=== PATIENT | male | born 1975 | race Caucasian/White ===

== ENCOUNTER 2018-03-08 19:05 | Inpatient (IN) | payer OTHER ==
[~2018-03-08] VITALS: Ht 175.3 cm; Wt 73.0 kg
[2018-03-08 19:09] VITALS: BP 130/77
[2018-03-08] MEDS ORDERED: NOHOMEMEDICATIONS (19:21)
[2018-03-08 19:29] LABS: HEMATOCRIT 30.7 % (42.0-52.0); HEMOGLOBIN 10.5 gm/dL (14.0-18.0); MCH 31.3 pg (26.0-34.0); MCHC 34.3 g/dL (28.0-37.0); MCV 91.3 fL (80.0-100.0); MPV 7.3 fl. (7.2-11.1); NUCLEATED RBCS 0 /100WBC; PLATELET COUNT* 139 thou/uL (150-400); RBC 3.37 mil/uL (4.50-6.00); RDW-CV 15.5 % (10.5-14.5); WBC 4.7 thou/uL (4.0-11.0)
[2018-03-08 19:37] LABS: ANION GAP 6 mmol/L (7-16); BUN 31 mg/dL (7-18); CALCIUM 8.6 mg/dL (8.5-10.1); CHLORIDE 91 mmol/L (98-107); CO2 33 mmol/L (21-32); GLUCOSE 149 mg/dL (70-99); SODIUM 130 mmol/L (136-145)
[2018-03-08 19:38] LABS: POTASSIUM 2.4 mmol/L (3.5-5.1)
[2018-03-08 19:41] LABS: APTT 23.8 Seconds (25.0-31.3)
[2018-03-08 19:48] LABS: ABSOLUTE LYMPHOCYTES 1.3 thou/uL (0.8-5.3); ABSOLUTE MONOCYTES 0.3 thou/uL (0.0-1.2); ABSOLUTE NEUTROPHILS 3.1 thou/uL (1.6-8.1); ATYPICAL LYMPHS 12 %
[2018-03-08 19:57] LABS: ALBUMIN 3.1 g/dL (3.4-5.0); ALKALINE PHOSPHATASE 63 U/L (46-116); CK-MB MASS 5.9 ng/mL (<0.5-3.6); LIPASE 280 U/L (73-393); MAGNESIUM 1.9 mg/dL (1.8-2.4); NT-PRO BRAIN NAT PEPTIDE 38 pg/mL (<300); SGOT 86 U/L (15-37); SGPT 66 U/L (30-65); TOTAL BILIRUBIN 0.7 mg/dL (<0.1-1.0); TOTAL PROTEIN 6.5 g/dL (6.4-8.2); TROPONIN-I LEVEL <0.06 ng/mL (<0.06)
[2018-03-08 22:33] LABS: ANION GAP 7 mmol/L (7-16); BUN 27 mg/dL (7-18); CALCIUM 8.2 mg/dL (8.5-10.1); CHLORIDE 95 mmol/L (98-107); CO2 29 mmol/L (21-32); CREATININE 0.9 mg/dL (0.6-1.3); GLUCOSE 83 mg/dL (70-99); SODIUM 131 mmol/L (136-145)
[2018-03-08 22:41] LABS: TROPONIN-I LEVEL <0.06 ng/mL (<0.06)
[2018-03-08 22:45] LABS: POTASSIUM 2.7 mmol/L (3.5-5.1)
[2018-03-08 23:29] VITALS: BP 135/93
[2018-03-08 23:49] VITALS: BP 137/96
[2018-03-09 04:00] VITALS: BP 137/82
[2018-03-09] MEDS ORDERED: BUSPIRONE HCL10 MG PO (04:25)
[2018-03-09] MEDS ORDERED: PRILOSEC 20 MG20 MG PO (04:25)
[2018-03-09] MEDS ORDERED: PROZAC20 MG PO (04:26)
[2018-03-09] MEDS ORDERED: LISINOPRIL10 MG PO (04:28)
[2018-03-09] MEDS ORDERED: LOPRESSOR50 PO (04:29)
[2018-03-09] MEDS ORDERED: PERCOCET 7.5-31 EACH PO (04:30)
[2018-03-09] MEDS ORDERED: ZYRTEC10 M5 PO (04:30)
[2018-03-09 06:28] LABS: CALCIUM 7.8 mg/dL (8.5-10.1); CREATININE 0.7 mg/dL (0.6-1.3); POTASSIUM 3.6 mmol/L (3.5-5.1)
[2018-03-09 07:27] LABS: ALBUMIN 2.6 g/dL (3.4-5.0); CREATININE 0.7 mg/dL (0.6-1.3); POTASSIUM 3.5 mmol/L (3.5-5.1)
--- NOTE | 2018-03-09 08:02 | NUR ---
RECEIVED REPORT FROM LAUREN SORIANO AT 2320. PT ARRIVED TO UNIT AT 2340. PT ORIENTED TO SELF AND PLACE ONLY. TRACING SINUS RHYTHM ON HOSIERY PAIRER. C/O PAIN, AND STATES HE DRINKS 1/2 PINT DAILY. CIWA SCORE 9, VOICES ANXIETY, VISIBLE TREMORS, AND SWEATING. DR. ESCOBAR NOTIFIED, NEW ORDERS RECEIVED. PT ATE BOX LUNCH UPON ARRIVAL TO UNIT, RESTED THOUGHOUT SHIFT. VOICED NO OTHER CONCERNS. HOURLY ROUNDING COMPLETED. CALL LIGHT WITHIN REACH. NO FALLS THIS SHIFT.
[2018-03-09 09:00] VITALS: BP 134/80
[2018-03-09 12:02] VITALS: BP 98/61
--- NOTE | 2018-03-09 13:06 | NUR ---
ATTEMPTED TO MEET WITH PT X2. HAS HAD MEDS AND IS SLEEPING. WILL TRY LATER
--- NOTE | 2018-03-09 16:13 | 2DMMODE ---
[place] [address] 2 D/M-MODE ECHOCARDIOGRAM Name: JEROME GUZMAN Room: [address] IN [facility]#: [id number] Admission: 03/08/18 Attend Phys: Brian Pineda, Discharge: Date of : 75 Date of Service: 03/09/18 1613 Report #: [id number] THIS REPORT FOR: //name// APPROVED REPORT Study performed: 03/09/2018 11:09:17 EXAM: Comprehensive 2D, Doppler, and color-flow Echocardiogram Patient Location: In-Patient Room #: [facility] Status: routine BSA: 1.79 HR: 65 bpm BP: 137/82 mmHg Rhythm: NSR Other Information Study Quality: Good Indications Chest Pain Hypertension/HDD Hypokalemia 2D Dimensions LVEF(%): 55.65 (>50%) IVSd: 9.45 (7-11mm) LVOT Diam: 21.74 (18-24mm) LVDd: 49.40 mm PWd: 9.30 (7-11mm) Ascending Ao: 31.10 (22-36mm) LVDs: 35.03 (25-40mm) Aortic Root: 35.66 mm See's LVEF: 55.65 % Volumes Left Atrial Volume (Systole) LA ESV Index: 28.00 mL/m2 Aortic Valve AoV Peak Guy.: 1.29 m/s AO Peak Gr.: 6.63 mmHg LVOT Max P.19 mmHg AO Mean Gr.: 3.68 mmHg LVOT Mean P.29 mmHg LVOT Max V: 1.14 m/s AO V2 VTI: 21.37 cm LVOT Mean V: 0.68 m/s RASHI (VTI): 3.31 cm2 LVOT V1 VTI: 19.03 [place] [address] 2 D/M-MODE ECHOCARDIOGRAM Name: JEROME GUZMAN Room: [address] IN [facility]#: [id number] Admission: 03/08/18 Attend Phys: Brian Pineda, Discharge: Date of : 75 Date of Service: 03/09/18 1613 Report #: [id number] Mitral Valve E/A Ratio: 1.23 MV Decel. Time: 159.54 ms MV E Max Guy.: 0.58 m/s MV PHT: 46.27 ms MVA (PHT): 4.76 cm2 TDI E/Lateral E': 4.46 E/Medial E': 4.46 Medial E' Guy.: 0.13 m/s Lateral E' Guy.: 0.13 m/s Pulmonary Valve PV Peak Guy.: 0.85 m/s PV Peak Gr.: 2.89 mmHg Left Ventricle The left ventricle is normal size. There is normal LV segmental wall motion. There is normal left ventricular wall thickness. Left ventricular systolic function is normal. LVEF is 60-65%. The left ventricular diastolic function is normal. Right Ventricle The right ventricle is normal size. The right ventricular systolic function is normal. Atria The left atrium size is normal. The right atrium size is normal. Aortic Valve The aortic valve is normal in structure. Trace aortic regurgitation. There is no aortic valvular stenosis. Mitral Valve The mitral valve is normal in structure. There is no mitral valve regurgitation noted. No evidence of mitral valve stenosis. Tricuspid Valve The tricuspid valve is normal in structure. Trace tricuspid regurgitation. Pulmonic Valve The pulmonary valve is normal in structure. There is no pulmonic valvular [place] [address] 2 D/M-MODE ECHOCARDIOGRAM Name: JEROME GUZMAN Yana Room: [address] IN [facility]#: [id number] Admission: 03/08/18 Attend Phys: Brian Pineda, Discharge: Date of : 75 Date of Service: 03/09/18 1613 Report #: [id number] The aortic root is normal in size. IVC is dilated. Pericardium There is no pericardial effusion. <Conclusion> The left ventricle is normal size. There is normal left ventricular wall thickness. Left ventricular systolic function is normal. LVEF is 60-65%. The left ventricular diastolic function is normal. Trace aortic regurgitation. Trace tricuspid regurgitation. <ELECTRONICALLY SIGNED> By: Kelby Bhatt MD, FACC 03/09/18 1613 1613 161 Kelby Bhatt MD, FACC /INF
[2018-03-09 16:15] VITALS: BP 110/77
--- NOTE | 2018-03-09 17:18 | EKG ---
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
--- NOTE | 2018-03-09 17:19 | EKG ---
[place] [address] ELECTROCARDIOGRAM REPORT Name: JEROME GUZMAN Room: [place] [address] ADM IN M.R.#: [id number] Admission: 03/08/18 Attend Phys: Brian Pineda MD Discharge: Date of : 75 Report #: [id number] THIS REPORT FOR: //name// [facility] Test Date: 2018-03-09 Test Time: 02:08:24 Pat Name: JEROME GUZMAN Department: Room: [place] [address] Gender: M Medical Policy Specialist: : 1975 Requested By: César Jacobson Order Number: [id number] Juan Ramon MD: Kelby Bhatt Measurements Intervals [place] Rate: 94 P: 74 NV: 141 QRS: 80 QRSD: 95 T: 24 QT: 426 QTc: 533 Interpretive Statements Sinus rhythm Prolonged QT interval No previous ECG available for comparison Electronically Signed On 03-09-2018 17:19:21 CDT by Kelby Bhatt [email or web address] <ELECTRONICALLY SIGNED> By: Kelby Bhatt MD, [facility] 03/09/18 1719 0208 0208 Kelby Bhatt MD, FACC /EPI
--- NOTE | 2018-03-09 17:19 | EKG ---
[place] [address] ELECTROCARDIOGRAM REPORT Name: JEROME GUZMAN Room: [place] [address] ADM IN M.R.#: [id number] Admission: 03/08/18 Attend Phys: Brian Pineda MD Discharge: Date of : 75 Report #: [id number] THIS REPORT FOR: //name// [facility] Test Date: 2018-03-09 Test Time: 06:05:53 Pat Name: JEROME GUZMAN Department: Room: [place] [address] Gender: M Psychologists: : 1975 Requested By: César Jacobson Order Number: [id number] Juan Ramon MD: Kelby Bhatt Measurements Intervals [place] Rate: 81 P: -4 ID: 146 QRS: -11 QRSD: 93 T: 24 QT: 443 QTc: 515 Interpretive Statements Sinus rhythm Prolonged QT interval No previous ECG available for comparison Electronically Signed On 03-09-2018 17:19:29 CDT by Kelby Bhatt [email or web address] <ELECTRONICALLY SIGNED> By: Kelby Bhatt MD, [facility] 03/09/18 1719 0605 4 Kelby Bhatt MD, FACC /EPI
[2018-03-09 20:00] VITALS: BP 99/64
[2018-03-10] VITALS: BP 109/75
[2018-03-10 04:00] VITALS: BP 107/77
[2018-03-10 04:45] LABS: HEMATOCRIT 29.9 % (42.0-52.0); HEMOGLOBIN 9.8 gm/dL (14.0-18.0); MCH 30.8 pg (26.0-34.0); MCHC 32.9 g/dL (28.0-37.0); MCV 93.7 fL (80.0-100.0); MPV 8.1 fl. (7.2-11.1); RBC 3.19 mil/uL (4.50-6.00); RDW-CV 15.7 % (10.5-14.5); WBC 4.2 thou/uL (4.0-11.0)
[2018-03-10 05:00] LABS: AMP/METHAMP Negative (Negative); BARBITURATES Negative (Negative); BENZODIAZEPINES Negative (Negative); COCAINE Negative (Negative); METHADONE Negative (Negative); OPIATES POSITIVE (Negative); PCP Negative (Negative); THC Negative (Negative)
[2018-03-10 05:05] LABS: ALBUMIN 2.2 g/dL (3.4-5.0); CALCIUM 7.9 mg/dL (8.5-10.1); MAGNESIUM 1.8 mg/dL (1.8-2.4); POTASSIUM 4.1 mmol/L (3.5-5.1); TOTAL BILIRUBIN 0.3 mg/dL (<0.1-1.0); TOTAL PROTEIN 5.2 g/dL (6.4-8.2)
--- NOTE | 2018-03-10 05:56 | NUR ---
ASSUMED PT CARE AT 1930. NURSING ASSESSMENT COMPLETED AT START OF SHIFT. PT VOICED NO CONCERS THIS SHIFT. MRB ENGINEER IN PLACE, TRACING SINUS RHYTHM. PT DROWSY BUT EASILY AROUSABLE THIS SHIFT, CIWA SCORE LESS THAN 4 THIS SHIFT, IVF INFUSING. C/O BACK PAIN, PRN PAIN MEDICATION ADMINISTERED, SEE EMAR FOR DOCUMENTATION. CALL LIGHT WITHIN REACH. FALL PRECAUTIONS IN PLACE.
[2018-03-10 08:00] VITALS: BP 106/82
--- NOTE | 2018-03-10 12:00 | NUR ---
VSS, ASSUMED CARE IN THE AM, ASSESMENT PERFORMED AND CHARTED, FALL PRECAUTIONS IN PLACE AND CALL LIGHT IN REACH, PT IS A&O4 UP WITH STAND BY, STATES LEILANI IN HIS BACK AND IS OLEGARIO NICHOLS ON THE MONITOR, PT IS ON RA AND HIS GOAL IS TO LOWER PAIN LEVEL. WILL FOLLOW ITH PLAN OF CARE.
--- NOTE | 2018-03-10 16:24 | NUR ---
VSS, PT IS NOT PROGRESSING TOWARDS GOAL, PT IS STATING PAIN LHAVING A LOT OF PAIN IN BACK, HE IS STILL SR ON THE MONITOR, AND BP'S HAVE BEEN WDP ALL DAY, PT IS ON RA UP WITH STAND BY AND IS A&O4, HOURLY ROUNDS COMPLETED AND WILL FOLLOW WITH PLAN OF CARE.
[2018-03-10 16:30] VITALS: BP 119/82
[2018-03-10 19:45] VITALS: BP 132/96
--- NOTE | 2018-03-10 23:00 | NUR ---
PT COULD NOT BE FOUND IN ROOM AT THIS TIME. IV WAS PULLED OUT AND LAYING ON FLOOR, CAN SOLDERER HAD BEEN PULLED OFF AND LAYING ON FLOOR. SEARCHED TELE FLOOR, OPEN ROOMS, BATHROOMS, VENDING MACHINE AND STAIRWELL AND PATIENT WAS NOT FOUND. SECURITY CALLED. PT WAS FOUND WANDERING DOWN IN ER AND HAD FOLLOWED A GROUP OF LADIES OUT TO THEIR CAR BUT WAS UNSUCCESSFUL IN OBTAINING A RIDE AND ATTEMPTED TO WALK OFF CAMPUS, HOWEVER, SECURITY FOUND PATIENT IN PARKING LOT AND ESCORTED HIM BACK UP TO HIS ROOM. PT HAS CURRENTLY BEEN MOVED TO A CLOSER ROOM WITH BED ALARM IN PLACE AND LABELED A FLIGHT RISK. WILL CONT TO MONITOR.
[2018-03-11] VITALS: BP 137/103
[2018-03-11 04:00] VITALS: BP 142/101
--- NOTE | 2018-03-11 05:57 | NUR ---
END SHIFT: PT CONTINUES TO HAVE SOME AUDITORY HALLUCINATIONS, AND YELLS OUT. CIWA INCREASING OVER SHIFT TO 10 THIS MORNING. IV ATIVAN GIVEN PER PROTOCOL. REMAINS SR ON MONITOR. C/O PAIN THAT IS NOT RELIEVED "BY ANY MEDICATION WE ARE GIVING HIM." ATTEMPTS AT RE-ORIENTATION ARE SUCCESSFUL FOR SHORT PERIODS. BED ALARM ON- OTHER SAFETY PRECAUTIONS IN PLACE. CALL LIGHT IN REACH. PERFORMED HOURLY ROUNDING. WILL CONT TO MONITOR.
[2018-03-11 07:30] VITALS: BP 160/121
--- NOTE | 2018-03-11 11:41 | NUR ---
RECEIVED PT CARE 0700. HE IS AWAKE/ALERT, ORIENTED X2-3. FORGETFUL AND CONFUSED AT TIMES, EASILY REORIENTED. VSS. FISHERIES SPECIALIST TRACING SR. TELE MONITOR DC'D THIS AM PER DR BLANK. CIWA 9 THIS AM. PRN ATIVAN GIVEN WITH GOOD RELIEF. PATIENT REPOSITIONS SELF IN BED. IVF INFUSING. AM ASSESSMENT CHARTED. MEDS PER OCT. C/O LEFT SIDE/CHEST PAIN, PRN PAIN MEDICATION GIVEN WITH PARTIAL RELIEF. PAIN MEDICATIONS ADJUSTED PER DR BLANK. BED ALARM ON. CALL LIGHT WITHIN REACH. WILL CONTINUE TO MONITOR.
[2018-03-11 12:11] VITALS: BP 113/83
[2018-03-11 15:54] VITALS: BP 125/91
--- NOTE | 2018-03-11 16:07 | NUR ---
Pt was sound asleep when CM went to assess, will f/u later
[2018-03-11 20:31] VITALS: BP 118/89
--- NOTE | 2018-03-11 22:00 | NUR ---
PT ALERT ORIENTED. SCORES A 6 ON CIWA. ATIVAN GIVEN. VOIDS CLEAR YELLOW. TELEMETRY SHOWS SR. WILL CONTINUE TO MONITOR.
[2018-03-12] VITALS (7 sets, daily range): BP systolic 120–146; BP diastolic 77–107
--- NOTE | 2018-03-12 04:49 | NUR ---
PT HAVING EPISOIDS OF CONFUSION UPON AWAKENING. REORIENTS EASILY. TRAMADOL SCHEDULED AND OXICODONE GIVEN FOR PAIN IN CHEST R/T PNEUMONIA. ATIVAN FOR WITHDRAW.
--- NOTE | 2018-03-12 08:49 | NUR ---
VSS, ASSUMED CARE IN THE AM, ASSESSMENT PERFORMED AND CHARTED, FALL PRECAUTIONS IN PLACE AND CALL LIGHT IN REACH, PT IS A&O4 BUT FORGETFUL, ON 2L NC UP AD DANE, STATES PAIN IN HIS LEFT SIDE, STATES IT 7 OUT OF 10, OT GOAL IS TO IMPROVE BREATHING AND LOWER PAIN LEVEL, PT IS TRACING SR ON THE MONITOR,
--- NOTE | 2018-03-12 11:51 | NUR ---
MET WITH PT TO DISCUSS HOME SITUATION/DC PLANNING. 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 PT IS STAYING IN AN EXTENDED STAY MOTEL, HE THINKS OFF [address] HE PLANS TO RETURN TO WORK AFTER DC. HE IS AND HAS SUPPORTIVE MOM AND FAMILY. DISCUSSED ETOH USE, PT OPEN ABOUT HIS HX. HAS BEEN TO REHAB, MOST RECENTLY 6MONTHS AGO IN [place]. STATED DID A DETOX AND TRIED TO F/U, BUT WAS 'TOO MUCH' TIME FACTOR. PT AWARE HE HAS BEEN DETOXING HERE NOW. HE HAS BEEN TO AA, STATED IT DIDN'T WORK FOR HIM. HE IS INTERESTED IN A CELEBRATE RECOVERY PROGRAM, WILL GIVE PT RESOURCES. HE IS UNINSURED, GAVE COMMUNITY RESOURCES. WILL FOLLOW
--- NOTE | 2018-03-12 19:14 | NUR ---
VSS, PT IS PROGRESSING TOWARDS GOAL, PT IS ON RA AND IS TRACING SR ON THE MONITOR, PT STATES PAIN ON HIS LEFT SIDE CHEST, HE IS UP WITH STAND BY AND IS BREATHING BETTER, AND ON RA, HE IS UP WITH STAND BY, PT IS IN BED RESTING AT THIS TIME AND HOURLY ROUNDS COMPLETED.
[2018-03-13] VITALS: BP 126/82
[2018-03-13 04:00] VITALS: BP 140/90
--- NOTE | 2018-03-13 05:44 | NUR ---
PATIENT RESTED IN BED, NO ACUTE CHANGES. PATIENT DID NOT SHOW SIGNS OF DISTRESS. NO ACUTE CHANGES, FALL PRECAUTIONS IN PLACE, BED ALARM ON, HOURLY ROUNDING OBSERVED.
[2018-03-13 08:00] VITALS: BP 151/107
[2018-03-13] MEDS ORDERED: ATIVAN1 MG PO (12:20)
[2018-03-13 12:31] VITALS: BP 151/107
--- NOTE | 2018-03-13 13:25 | NUR ---
VSS, ASSUMED CARE IN THE AM, ASSESSMENT PERFFORMED AND CHARTED, FALL PRECAUTIONS IN PLACE AND CALL LIGHT IN REACH, PT STATES PAIN ON HIS LEFT SIDE AND AND IS ON RA AND IS TRACING SR ON THE MONITOR, HE IS UP AD DANE AND HIS GOAL IS TO D/C ON DAY OF CARE, AT THIS D/C ORDERS HAVE BEEN RECIEVED AND PT IS IV AND TELE MONITOR HAVE BEEN TAKEN OFF, PT DENIES ANY QUESTIONS OR CONCERNS AT TIME OF D/C, HOURLY ROUNDS COMPLETED, SCRIPTS AND D/C PAPERS WERE GIVEN TO PT AND PT WAS WALKED OUT BY STAFF TO CAB,
--- NOTE | 2018-03-13 13:45 | NUR ---
PROVIDED CAB VOUCHER FOR PT
== END 2018-03-13 13:37 | disposition home or self-care (01) | DRG 195 ==
LOC: M.ERS 19:05 → EDBD 19:05 → M.TBA-ER 23:14 → M.2W 23:14
PROVIDERS: Family Medicine; Internal Medicine; ADMIT Internal Medicine
DX: J18.9 Pneumonia, unspecified organism (principal); E87.6 Hypokalemia; F10.10 Alcohol abuse, uncomplicated; F17.210 Nicotine dependence, cigarettes, uncomplicated; D64.9 Anemia, unspecified; R79.89 Other specified abnormal findings of blood chemistry; I25.2 Old myocardial infarction; Z87.820 Personal history of traumatic brain injury; Z79.2 Long term (current) use of antibiotics; Z79.899 Other long term (current) drug therapy

== ENCOUNTER 2018-03-15 15:09 | Inpatient (IN) | payer OTHER ==
[~2018-03-15] VITALS: Ht 175.3 cm; Wt 73.0 kg
[~2018-03-15 15:09] MED LIST: ATIVAN1 MG PO; BUSPIRONE HCL10 MG PO; LISINOPRIL10 MG PO; LOPRESSOR50 PO; NOHOMEMEDICATIONS; PERCOCET 7.5-31 EACH PO; PRILOSEC 20 MG20 MG PO; PROZAC20 MG PO; ZYRTEC10 M5 PO
[2018-03-15 15:11] VITALS: BP 113/83
--- NOTE | 2018-03-15 15:29 | NUR ---
CONTACTED AN UNCLE PER PT REQUEST BY THE NAME GUILLERMINA. GUILLERMINA STATES PT IS HOMELESS AND THAT HIS MOTHER IS IN POOR HEALTH.
[2018-03-15 15:45] LABS: ABSOLUTE BASOPHILS 0.1 thou/uL (0.0-0.2); ABSOLUTE LYMPHOCYTES 1.4 thou/uL (0.8-5.3); ABSOLUTE MONOCYTES 0.9 thou/uL (0.0-1.2); ABSOLUTE NEUTROPHILS 4.7 thou/uL (1.6-8.1); BASOPHILS 1.4 %; EOSINOPHILS 0.2 %; HEMATOCRIT 38.6 % (42.0-52.0); HEMOGLOBIN 12.7 gm/dL (14.0-18.0); LYMPHOCYTES 19.6 %; MCH 30.3 pg (26.0-34.0); MCHC 33.1 g/dL (28.0-37.0); MCV 91.7 fL (80.0-100.0); MONOCYTES 12.3 %; MPV 6.5 fl. (7.2-11.1); NUCLEATED RBCS 0 /100WBC; PLATELET COUNT* 838 thou/uL (150-400); POLYS 66.5 %; WBC 7.1 thou/uL (4.0-11.0)
[2018-03-15 15:51] LABS: CALCIUM 8.1 mg/dL (8.5-10.1); CREATININE 1.1 mg/dL (0.6-1.3); POTASSIUM 3.7 mmol/L (3.5-5.1)
[2018-03-15 15:52] LABS: URINE BILIRUBIN NEGATIVE (Negative); URINE BLOOD NEGATIVE (Negative); URINE CLARITY CLEAR; URINE COLOR YELLOW; URINE GLUCOSE-RANDOM NEGATIVE (Negative); URINE KETONES TRACE (Negative); URINE LEUKOCYTES-REFLEX NEGATIVE (Negative); URINE NITRITE-REFLEX NEGATIVE (Negative); URINE PROTEIN NEGATIVE (Negative); URINE UROBILINOGEN 0.2 E.U./dl (0.2-1.0)
[2018-03-15 15:59] LABS: ALBUMIN 2.6 g/dL (3.4-5.0); TOTAL BILIRUBIN 0.2 mg/dL (<0.1-1.0); TOTAL PROTEIN 6.4 g/dL (6.4-8.2); TROPONIN-I LEVEL 0.06 ng/mL (<0.06)
--- NOTE | 2018-03-15 16:03 | NUR ---
PT TORE ALL MONITORING DEVICES OFF AND REFUSED TO LEAVE THEM ON.
[2018-03-15 16:05] LABS: AMP/METHAMP Negative (Negative); BARBITURATES Negative (Negative); BENZODIAZEPINES Negative (Negative); COCAINE Negative (Negative); METHADONE Negative (Negative); OPIATES Negative (Negative); PCP Negative (Negative); THC Negative (Negative)
--- NOTE | 2018-03-15 16:10 | NUR ---
PT RIPPED 2ND IV OUT. NOTIFIED AND NO NEW ORDERS GIVEN.
--- NOTE | 2018-03-15 16:58 | NUR ---
PT RIPPED ALL MONITORING EQUIPMENT AGAIN. NOTIFIED
--- NOTE | 2018-03-15 17:02 | NUR ---
3RD ARMBAND PLACED ON PT. PT RIPPED PREVIUOS 2 OFF.
[2018-03-15 17:16] VITALS: BP 118/69
[2018-03-15 18:00] VITALS: BP 102/69
--- NOTE | 2018-03-15 18:26 | NUR ---
PT ARRIVED TO UNIT 1725. VSS. ROOM AIR. PT REPORTS PAIN IN HIS BACK THAT HE HAS "HAD FOR YEARS". ORIENTED AND COOPERATIVE AT THIS TIME. DENIES ANY FURTHER CONCERNS/QUESTIONS.
[2018-03-15] MEDS ORDERED: OXYCODONE HCL 55 MG PO (19:08)
[2018-03-15 20:00] VITALS: BP 106/63
[2018-03-16] VITALS: BP 106/63
--- NOTE | 2018-03-16 01:44 | NUR ---
PT ALERT ORIENTED. PT COMPLAINING OF BACK PAIN ASKING FOR HYDROCODONE THAT HE HAD LAST TIME HE WAS HERE. DR BLANK NOTIFIED. LIDOCAIN PATCH ADDED TO MEDICATIONS THAT PATIENT ALREADY GETTING. IBUPROPHEN AND TRAMADOL. ALSO REQUESTED A NICOTINE PATCH FOR PT. TELEMETRY SHOWS ST. UP WITH STAND BY ASSIST. WILL CONTINUE TO MONITOR.
--- NOTE | 2018-03-16 03:20 | NUR ---
PT AGITATED AND FIGITY. CIWA RESCORED AT 0230 AT 0230. ATIVAN GIVEN.
[2018-03-16 04:00] VITALS: BP 128/89
[2018-03-16 05:16] LABS: HEMATOCRIT 32.9 % (42.0-52.0); HEMOGLOBIN 10.9 gm/dL (14.0-18.0); MCH 30.5 pg (26.0-34.0); MCHC 33.3 g/dL (28.0-37.0); MCV 91.8 fL (80.0-100.0); RBC 3.58 mil/uL (4.50-6.00); RDW-CV 15.6 % (10.5-14.5); WBC 7.6 thou/uL (4.0-11.0)
[2018-03-16 05:37] LABS: ALBUMIN 2.2 g/dL (3.4-5.0); CALCIUM 7.6 mg/dL (8.5-10.1); MAGNESIUM 1.5 mg/dL (1.8-2.4); POTASSIUM 4.6 mmol/L (3.5-5.1); TOTAL BILIRUBIN 0.1 mg/dL (<0.1-1.0); TOTAL PROTEIN 5.3 g/dL (6.4-8.2); TROPONIN-I LEVEL 0.15 ng/mL (<0.06)
[2018-03-16 08:00] VITALS: BP 144/102
--- NOTE | 2018-03-16 11:56 | NUR ---
INITIAL ASSESSMENT: Pt evaluated for d/c planning needs. Reviewed chart. Pt was hospitalized at [facility] earlier this month and went through detox. 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 Pt was given resources for alcohol treatment and community resources. Will remain available to assist as needed.
[2018-03-16 13:57] VITALS: BP 133/97
--- NOTE | 2018-03-16 15:00 | NUR ---
ASSUMED PT CARE AT 0730, FULL ASSESMENT DONE CHARTED. PT A/O X4, C/O BACK PAIN, REQUESTED DIFFERENT PAIN MEDS, STATES THAT ULTRAM IS NOT HELPING AND HE NORMALLY TAKES OXYCODONE. DR BLANK SPOKE TO PT AND IS PLANNING ON ORDERING HIM SOME OXY. PT EDUCATED ON PLAN OF CARE. PT WENT FOR STRESS TEST AT APPROX 1200. USES CALL LIGHT APPROPRIALTY. VSS, SR ON THE MONITOR. WILL CONTINUE WITH PLAN OF CARE.
[2018-03-16 15:51] VITALS: BP 141/92
[2018-03-16] MEDS ORDERED: BUSPIRONE HCL10 MG PO (17:11)
[2018-03-16] MEDS ORDERED: PRILOSEC 20 MG20 MG PO (17:12)
[2018-03-16] MEDS ORDERED: PROZAC20 MG PO (17:12)
[2018-03-16] MEDS ORDERED: LOPRESSOR50 PO (17:13)
[2018-03-16] MEDS ORDERED: ZYRTEC10 M5 PO (17:13)
[2018-03-16] MEDS ORDERED: PERCOCET 7.5-31 EACH PO (17:14)
--- NOTE | 2018-03-16 17:25 | EKG ---
[place] [address] ELECTROCARDIOGRAM REPORT Name: JEROME GUZMAN Room: [address] ADM IN .R.#: [id number] Admission: 03/15/18 Attend Phys: Charo Kearns MD Discharge: Date of : 75 Report #: [id number] THIS REPORT FOR: //name// [facility] ED Test Date: 2018-03-15 Test Time: 15:25:53 Pat Name: JEROME GUZMAN Department: Room: [facility] Gender: M Driller Portable: Lita ADAN : 1975 Requested By: Arnel Montoya Order Number: [id number] MD: Kelby Bhatt Measurements Intervals [place] Rate: 96 P: 61 IL: 142 QRS: 75 QRSD: 91 T: 60 QT: 387 QTc: 490 Interpretive Statements Sinus rhythm Consider left ventricular hypertrophy Baseline wander in lead(s) V2 Compared to ECG 03/09/2018 06:05:53 No significant changes Electronically Signed On 03-16-2018 17:24:41 CDT by Kelby Bhatt [email or web address] <ELECTRONICALLY SIGNED> By: Kelby Bhatt MD, FAC 03/16/18 1724 1525 1525 Kelby Bhatt MD, [facility] /EPI
--- NOTE | 2018-03-16 18:09 | CARDNUC ---
[place] [address] CARDIAC NUCLEAR IMAGING REPORT Name: JEROME GUZMAN Room: [address] IN [facility]#: [id number] Admission: 03/15/18 Attend Phys: Charo Kearns, Discharge: Date of : 75 Date of Service: 03/16/18 1809 Report #: [id number] THIS REPORT FOR: //name// APPROVED REPORT Study performed: 03/16/2018 09:29:00 Indication: Chest pain, Troponin elevation Patient Location: In-Patient Room #: 230 Stress Tech: Karen Hines Stress Nurse: Janie Pryor RN NM Tech:RUFUS Davidson Ht: 5 ft 9 in Wt: 160 lbs BSA: 1.88 m2 BMI: 23.62 Medical History Medical History: [place], , Current Smoker Medications: Aspirin, , Nitroglycerin Allergies: Trazodone Cardiac Risk Factors: Current Smoker, HTN, HX of [place] Previous Cardiac Procedures: Myocardial infarction Exercise History: Physically active Meds Held (24 hrs): Nitroglycerin SL Stress Test Details Stress Test: Pharmacologic stress testing performed using 0.4 mg of regadenoson per 5 mL given IV over 10 seconds. Reason for pharmacologic stress test: physical limitation. HR Max Heart Rate (APMHR): 185 bpm Resting HR: 79 bpm Target HR (85% APMHR): 157 bpm Max HR Achieved: 141 bpm % of APMHR: 76 Recovery HR: 119 bpm BP Resting BP: 152/108 mmHg Recovery BP: 160/89 mmHg ECG Resting ECG: Sinus Rhythm, normal EKG Stress ECG: Sinus Rhythm, normal EKG ST Change: [place] [address] CARDIAC NUCLEAR IMAGING REPORT Name: ROCABUNDIOJEROME Yana Room: [address]#: [id number] Admission: 03/15/18 Attend Phys: Charo Kearns, Discharge: Date of : 75 Date of Service: 03/16/18 1809 Report #: [id number] Arrhythmia: None Recovery ECG: Sinus Rhythm, normal EKG Recovery ST Change: None Recovery Arrhythmia: None Clinical Reason for Termination: Completed protocol Stress Symptoms: Lightheaded, Dizziness Exercise duration: 0 min 0 sec Exercise capacity: 1 METs The patient tolerated Lexiscan without significant symptoms. Nurse Comments Pt. tolerated Lexiscan well, recovered with oral caffeine. No complaints. Stress ECG Conclusion The baseline 12-lead EKG show sinus rhythm without significant ST or T wave abnormality. EKGs obtained during and post Lexiscan infusion show sinus rhythm with no significant ST or T wave changes when compared to baseline. There were no stress-induced arrhythmias. Study Quality Study: Good Artifact: No artifact Study Data Post stress, the left ventricular ejection was 63%.. Perfusion Normal left ventricular perfusion. Wall Motion Normal left ventricular wall motion. Nuclear Conclusion ECG Findings: negative for ischemia Clinical Findings: negative for ischemia Nuclear Findings: negative for ischemia Exercise Capacity: not assessed Left Ventricular Function: normal Risk Study: low Myocardial perfusion images show no defect to suggest infarct or ischemia. Left ventricular systolic function appears [place] [address] CARDIAC NUCLEAR IMAGING REPORT Name: JEROME GUZMAN Room: [address] IN [facility]#: [id number] Admission: 03/15/18 Attend Phys: Charo Kearns, Discharge: Date of : 75 Date of Service: 03/16/181808 Report #: [id number] studies. This is a low risk study. <Conclusion> The baseline 12-lead EKG show sinus rhythm without significant ST or T wave abnormality. EKGs obtained during and post Lexiscan infusion show sinus rhythm with no significant ST or T wave changes when compared to baseline. There were no stress-induced arrhythmias. <ELECTRONICALLY SIGNED> By: Kelby Bhatt MD, FACC 03/16/181808 08 1809 Kelby Bhatt MD, FACC /INF
[2018-03-16 20:00] VITALS: BP 142/82
[2018-03-17] VITALS: BP 143/91
--- NOTE | 2018-03-17 00:59 | NUR ---
PT ALERT ORIENTED. CIWA SCORE 0. OXYCODONE GIVEN Q 4 HRS FOR BACK PAIN. PT REFUSING TRAMADOL. VITAMIN BAG INFUSING. TELEMETRY SHOWS SR.
[2018-03-17 04:00] VITALS: BP 134/89
[2018-03-17 08:00] VITALS: BP 149/95
--- NOTE | 2018-03-17 11:30 | NUR ---
MET WITH PT, KNOWN FROM DC ON THURSDAY. PT READMITTED WITH ETOH INTOXICATION. HAS ORDERS FOR DC TODAY. PT STATES HE PLANS TO RETURN TO [place] AND HIS UNCLE IS GOING TO HELP HIM GET INTO REHAB. HE STATED HIS BELONGINGS AND VEHICLE ARE STILL AT THE HOTEL AND ASKED FOR CAB VOUCHER BACK THERE. GIVEN TO NURSE.
[2018-03-17 11:41] VITALS: BP 120/75
[2018-03-17 12:12] VITALS: BP 120/75
[2018-03-17] MEDS ORDERED: IBUPROFEN 200200 M1 PO (12:31)
[2018-03-17] MEDS ORDERED: ASPIR 8181 MG PO (12:32)
--- NOTE | 2018-03-17 14:08 | NUR ---
ASSUMED CARE OF PT AT 0715. PT REMIANS A&O X4 CALM AND COOPERATIVE AND HAVING NO S/S OF WITHDRAW. PT C/O BACK PAIN THAT HAS BEEN EFFECTIVELY TREATED WITH MEDICATIONS PER OCT. PT HAS HAD A GOOD APPETITE AND ATE GREATER THAN 90% OF MEALS. PT TO DISCHARGE TODAY. DISCHARGE INSTRUCTIONS REVIEWED WITH PT AND PT VERBALIZED UNDERSTANDING OF INSTRUCTIONS. NURSING WILL CONTINUE TO MONITOR.
== END 2018-03-17 14:47 | disposition home or self-care (01) | DRG 313 ==
LOC: M.ERS 15:09 → M.TBA-ER 16:43 → M.2W 16:43
PROVIDERS: Emergency Medicine Emergency Medical Services; ADMIT Internal Medicine
DX: R07.89 Other chest pain (principal); F10.129 Alcohol abuse with intoxication, unspecified; M19.90 Unspecified osteoarthritis, unspecified site; G89.29 Other chronic pain; I10 Essential (primary) hypertension; M54.9 Dorsalgia, unspecified; F17.210 Nicotine dependence, cigarettes, uncomplicated; Z79.82 Long term (current) use of aspirin; Z79.891 Long term (current) use of opiate analgesic; I25.2 Old myocardial infarction; Z87.01 Personal history of pneumonia (recurrent); Z87.820 Personal history of traumatic brain injury